=== PATIENT | female | born 1985 | race Hispanic/Latino ===

== ENCOUNTER → 2021-11-19 | Outpatient (CLI) | payer BC | END | disposition home or self-care (01) | LOC: RAH 09:51 | PROVIDERS: ATTEND Orthopaedic Surgery | DX: S83.241A Other tear of medial meniscus, current injury, right knee, initial encounter (principal); X58.XXXA Exposure to other specified factors, initial encounter; Y93.89 Activity, other specified; Y92.89 Other specified places as the place of occurrence of the external cause; Y99.8 Other external cause status; M23.91 Unspecified internal derangement of right knee | CPT/HCPCS: 73721 ==